=== PATIENT | male | born 1970 | race Caucasian/White ===

== ENCOUNTER 2017-03-07 11:07 | Emergency (ER) | payer SELFPAY ==
[~2017-03-07] VITALS: Ht 185.4 cm; Wt 84.1 kg
[~2017-03-07 11:07] MED LIST: CIPRO 500MG TA500 MG PO; CLEOCIN HCL300 MG PO; FLAGYL500 MG PO; FLEXERIL 1010 MG/TAB PO; LEVAQUIN 5500 MG/TA1 PO; LORTAB 5/500 501 TAB PO; NAPROSYN500 MG PO; NO HOME MEDICATIONS; NORCO 325 MG-51 TAB PO; PREDNISONE20 MG PO; ZITHROMAX 250M250 MG PO; ZOFRAN 4MG T4 MG/TAB PO
[2017-03-07 11:15] VITALS: TEMP 98
[2017-03-07 12:06] LABS: BASO # 0.1 (0.0-0.2); BASO % 0.5 % (0.0-2.0); EOS # 0.1 (0.0-0.7); EOS % 0.9 % (0-4.0); GRAN # 8.7 (1.4-6.5); GRAN % 75.2 % (42.2-75.2); HEMATOCRIT 48.2 % (42.0-52.0); HEMOGLOBIN 16.1 g/dl (13.5-18.0); LYMPH # 1.6 (1.2-3.4); MEAN CELL VOLUME 88 fl (80.0-100.0); MEAN CORPUSCULAR HEMOGLOBIN 29 pg (27.0-31.0); MEAN CORPUSCULAR HGB CONC 33 g/dl (33.0-37.0); MEAN PLATELET VOLUME 10.7 fl (7.4-10.4); MONO # 1.1 (0.1-0.6); MONO % 9.1 % (1.7-9.3); PLATELET COUNT 243 K/mm3 (130-400); RED BLOOD COUNT 5.47 M/mm3 (4.20-5.60); REDCELL DISTRIBUTION WIDTH-CV 12.3 % (11.5-14.5); WHITE BLOOD COUNT 11.6 K/mm3 (4.8-10.8)
[2017-03-07 12:07] LABS: ADJUSTED CALCIUM 9.9 mg/dL (8.4-10.2); ALANINE AMINOTRANSFERASE 27 U/L (21-72); ALKALINE PHOSPHATASE 154 U/L (50-136); ANION GAP 10 mmol/L (7-16); BILIRUBIN,TOTAL 1.2 mg/dL (0.0-1.0); BLOOD UREA NITROGEN 12 mg/dL (9-20); CALCIUM 9.9 mg/dL (8.4-10.2); CARBON DIOXIDE 32 mmol/L (22-30); CHLORIDE 92 mmol/L (98-107); CREATININE, serum 0.74 mg/dL (0.66-1.25); GLUCOSE 226 mg/dL (74-106); POTASSIUM 4.4 mmol/L (3.4-5.0); SODIUM 133 mmol/L (137-145); TOTAL PROTEIN 7.7 gm/dL (6.4-8.2)
[2017-03-07 12:18] LABS: PH 7 (5-8); SQUAMOUS EPITHELIAL None Seen /hpf; URINE APPEARANCE Clear; URINE BACTERIA None Seen /hpf; URINE BILIRUBIN Negative (NEGATIVE); URINE BLOOD 1+ (NEGATIVE); URINE COLOR Yellow; URINE GLUCOSE 3+ (NEGATIVE); URINE KETONE Negative (NEGATIVE); URINE RBC 0-2 /hpf; URINE UROBILINOGEN Negative (NEGATIVE); URINE WBC 0-2 /hpf
[2017-03-07 12:21] LABS: TROPONIN-I < 0.012 ng/mL (0.000-0.034)
[2017-03-07] MEDS ORDERED: PREDNISONE20 MG PO (12:46)
[2017-03-07] MEDS ORDERED: PROAIR HFA0.09 MG/AC IH (12:46)
[2017-03-07] MEDS ORDERED: LEVAQUIN 5500 MG/TA1 PO (12:46)
[2017-03-07 13:00] VITALS: BP 168/79; PULSE 92
== END 2017-03-07 13:01 | disposition home or self-care (01) ==
LOC: COL.ER 11:07
PROVIDERS: Nurse Practitioner
DX: J20.9 Acute bronchitis, unspecified (principal); E11.9 Type 2 diabetes mellitus without complications; I10 Essential (primary) hypertension; F17.210 Nicotine dependence, cigarettes, uncomplicated; R09.89 Other specified symptoms and signs involving the circulatory and respiratory systems
CPT/HCPCS: J7512

== ENCOUNTER 2018-04-08 23:28 | Emergency (ER) | payer SELFPAY ==
[~2018-04-08 23:28] MED LIST changes: +PROAIR HFA0.09 MG/AC IH
[2018-04-08 23:39] VITALS: BP 165/79; TEMP 97.3
[2018-04-08 23:49] LABS: HEMATOCRIT 39.7 % (42.0-52.0); HEMOGLOBIN 13.3 g/dl (13.5-18.0); MEAN CELL VOLUME 83 fl (80.0-100.0); MEAN CORPUSCULAR HEMOGLOBIN 28 pg (27.0-31.0); MEAN CORPUSCULAR HGB CONC 34 g/dl (33.0-37.0); MEAN PLATELET VOLUME 10.1 fl (7.4-10.4); PLATELET COUNT 258 K/mm3 (130-400); REDCELL DISTRIBUTION WIDTH-CV 13.7 % (11.5-14.5)
[2018-04-09] LABS: ALANINE AMINOTRANSFERASE 31 U/L (21-72); ALBUMIN 3.5 gm/dL (3.5-5.0); ALKALINE PHOSPHATASE 157 U/L (50-136); ANION GAP 11 mmol/L (7-16); AST,SGOT 25 U/L (15-37); BILIRUBIN,TOTAL 0.9 mg/dL (0.0-1.0); BLOOD UREA NITROGEN 18 mg/dL (9-20); CARBON DIOXIDE 25 mmol/L (22-30); CHLORIDE 93 mmol/L (98-107); CREATININE, serum 0.82 mg/dL (0.66-1.25); GLUCOSE 267 mg/dL (74-106); LIPASE 286 U/L (23-300); POTASSIUM 4.5 mmol/L (3.4-5.0); SODIUM 128 mmol/L (137-145); TOTAL PROTEIN 7.8 gm/dL (6.4-8.2)
[2018-04-09 00:07] LABS: BAND 7 % (0-10); BASOPHIL 1 % (0-2); LYMPHOCYTE 13 % (20.0-51.0); NEUTROPHILS 77 % (42.0-75.2); PLATELET ESTIMATE NORMAL (NORMAL)
[2018-04-09 00:09] LABS: TROPONIN-I < 0.012 ng/mL (0.000-0.034)
[2018-04-09 00:20] LABS: C-REACTIVE PROTEIN 20.1 mg/dL (0.0-0.9)
[2018-04-09] MEDS ORDERED: PREDNISONE20 MG PO (01:10)
[2018-04-09] MEDS ORDERED: NORCO 325 MG-51 TAB PO (01:10)
[2018-04-09] MEDS ORDERED: LEVAQUIN 5500 MG/TA1 PO (01:10)
[2018-04-09 01:38] VITALS: PULSE 93
== END 2018-04-09 01:35 | disposition home or self-care (01) ==
LOC: COL.ER 23:28
PROVIDERS: Emergency Medicine
DX: J18.9 Pneumonia, unspecified organism (principal); R73.9 Hyperglycemia, unspecified; F17.210 Nicotine dependence, cigarettes, uncomplicated
CPT/HCPCS: J7030; J7512; Q9967

== ENCOUNTER → 2018-07-05 | Outpatient (CLI) | payer SELFPAY ==
[2018-07-05 11:37] LABS: COLLECTION METHOD CLEAN CATCH
[2018-07-05 11:44] LABS: BASO # 0.1 (0.0-0.2); BASO % 0.6 % (0.0-2.0); EOS # 0.1 (0.0-0.7); GRAN # 5.5 (1.4-6.5); GRAN % 70.9 % (42.2-75.2); HEMATOCRIT 42.5 % (42.0-52.0); HEMOGLOBIN 14.3 g/dl (13.5-18.0); LYMPH # 1.5 (1.2-3.4); LYMPH % 19.8 % (20.0-51.0); MEAN CELL VOLUME 83 fl (80.0-100.0); MEAN CORPUSCULAR HEMOGLOBIN 28 pg (27.0-31.0); MEAN CORPUSCULAR HGB CONC 34 g/dl (33.0-37.0); MEAN PLATELET VOLUME 10.5 fl (7.4-10.4); MONO # 0.6 (0.1-0.6); MONO % 7.4 % (1.7-9.3); PLATELET COUNT 281 K/mm3 (130-400); RED BLOOD COUNT 5.11 M/mm3 (4.20-5.60); REDCELL DISTRIBUTION WIDTH-CV 13.5 % (11.5-14.5)
[2018-07-05 11:48] LABS: PH 6 (5-8); SQUAMOUS EPITHELIAL None Seen /hpf; URINE APPEARANCE Clear; URINE BACTERIA None Seen /hpf; URINE BILIRUBIN Negative (NEGATIVE); URINE BLOOD 1+ (NEGATIVE); URINE COLOR Straw; URINE GLUCOSE 3+ (NEGATIVE); URINE KETONE Negative (NEGATIVE); URINE LEUKOCYTE ESTERASE Negative (NEGATIVE); URINE NITRATE Negative (NEGATIVE); URINE PROTEIN(semi-quant) 1+ (NEGATIVE); URINE RBC 0-2 /hpf; URINE UROBILINOGEN Negative (NEGATIVE); URINE WBC 0-2 /hpf
[2018-07-05 11:49] LABS: ALBUMIN 3.9 gm/dL (3.5-5.0); BILIRUBIN,TOTAL 0.3 mg/dL (0.0-1.0); CALCIUM 9.9 mg/dL (8.4-10.2); CHOLESTEROL RISK RATIO 6.5; CREATININE, serum 0.64 mg/dL (0.66-1.25); POTASSIUM 5.4 mmol/L (3.4-5.0); TOTAL PROTEIN 7.3 gm/dL (6.4-8.2)
[2018-07-05 12:19] LABS: THYROID STIMULATING HORMONE 1.07 uIU/mL (0.465-4.680)
== END ==
LOC: ZCOL.LAB 11:33
DX: I10 Essential (primary) hypertension (principal); E11.9 Type 2 diabetes mellitus without complications

== ENCOUNTER 2018-07-17 14:03 | Emergency (ER) | payer SELFPAY ==
[~2018-07-17] VITALS: Ht 188 cm; Wt 81.8 kg
[2018-07-17 14:06] VITALS: TEMP 99.9
[2018-07-17] MEDS ORDERED: DIABETIC MEDICATION PO (14:16)
[2018-07-17] MEDS ORDERED: BLOOD PRESSURE MEDIC PO (14:16)
[2018-07-17 14:34] LABS: BASO # 0.1 (0.0-0.2); BASO % 0.3 % (0.0-2.0); EOS % 0.1 % (0-4.0); GRAN # 14.8 (1.4-6.5); GRAN % 84.1 % (42.2-75.2); HEMATOCRIT 38.9 % (42.0-52.0); HEMOGLOBIN 12.8 g/dl (13.5-18.0); LYMPH # 1.1 (1.2-3.4); LYMPH % 6.2 % (20.0-51.0); MEAN CELL VOLUME 85 fl (80.0-100.0); MEAN CORPUSCULAR HEMOGLOBIN 28 pg (27.0-31.0); MEAN CORPUSCULAR HGB CONC 33 g/dl (33.0-37.0); MEAN PLATELET VOLUME 9.4 fl (7.4-10.4); MONO # 1.6 (0.1-0.6); MONO % 8.8 % (1.7-9.3); PLATELET COUNT 224 K/mm3 (130-400); RED BLOOD COUNT 4.58 M/mm3 (4.20-5.60); REDCELL DISTRIBUTION WIDTH-CV 13.3 % (11.5-14.5)
[2018-07-17 14:46] LABS: ALBUMIN 3.7 gm/dL (3.5-5.0); BILIRUBIN,TOTAL 0.8 mg/dL (0.0-1.0); CALCIUM 8.7 mg/dL (8.4-10.2); CREATININE, serum 0.77 mg/dL (0.66-1.25); POTASSIUM 4.4 mmol/L (3.4-5.0); TOTAL PROTEIN 7.3 gm/dL (6.4-8.2)
[2018-07-17] MEDS ORDERED: DOXYCYCLINE 10100 MG PO (15:23)
[2018-07-17] MEDS ORDERED: PROAIR HFA0.09 MG/AC IH (15:23)
[2018-07-17] MEDS ORDERED: PREDNISONE20 MG PO (15:23)
[2018-07-17 15:30] VITALS: BP 120/54; PULSE 97
== END 2018-07-17 15:32 | disposition home or self-care (01) ==
LOC: COL.ER 14:03
PROVIDERS: Nurse Practitioner
DX: J18.1 Lobar pneumonia, unspecified organism (principal); E11.9 Type 2 diabetes mellitus without complications; I10 Essential (primary) hypertension; J44.9 Chronic obstructive pulmonary disease, unspecified; F17.210 Nicotine dependence, cigarettes, uncomplicated
CPT/HCPCS: J7512

== ENCOUNTER → 2018-07-20 | Outpatient (CLI) | payer SELFPAY ==
[~2018-07-20] MED LIST changes: +BLOOD PRESSURE MEDIC PO; +DIABETIC MEDICATION PO; +DOXYCYCLINE 10100 MG PO
== END ==
LOC: SUN.DIA 07-08 11:06
DX: E11.9 Type 2 diabetes mellitus without complications (principal); F17.210 Nicotine dependence, cigarettes, uncomplicated
CPT/HCPCS: G0108

== ENCOUNTER → 2019-05-22 | Outpatient (CLI) | payer SELFPAY | LOC: COL.LAB 15:50 | DX: E11.9 Type 2 diabetes mellitus without complications (principal); I10 Essential (primary) hypertension ==

== ENCOUNTER → 2019-06-13 | Outpatient (CLI) | payer SELFPAY ==
[2019-06-13 20:29] LABS: HEMATOCRIT 42.8 % (42.0-52.0); HEMOGLOBIN 13.5 g/dl (13.5-18.0)
[2019-06-13 20:44] LABS: ALBUMIN 3.8 gm/dL (3.5-5.0); BILIRUBIN,TOTAL 0.3 mg/dL (0.0-1.0); CALCIUM 9.5 mg/dL (8.4-10.2); CHOLESTEROL RISK RATIO 4.6; CREATININE, serum 0.73 (0.66-1.25); POTASSIUM 5.3 mmol/L (3.4-5.0); TOTAL PROTEIN 6.6 gm/dL (6.4-8.2)
[2019-06-13 21:14] LABS: THYROID STIMULATING HORMONE 1.29 uIU/mL (0.465-4.680)
== END ==
LOC: ZLAB.FHCC 14:18
PROVIDERS: Internal Medicine
DX: I10 Essential (primary) hypertension (principal); E11.9 Type 2 diabetes mellitus without complications

== ENCOUNTER 2021-05-21 22:12 | Emergency (ER) | payer BC ==
[~2021-05-21] VITALS: Ht 185.4 cm; Wt 93.2 kg
[2021-05-22 00:04] VITALS: BP 134/73; PULSE 87
== END 2021-05-22 00:04 | disposition home or self-care (01) ==
LOC: COL.ER 22:12
DX: S82.302A Unspecified fracture of lower end of left tibia, initial encounter for closed fracture (principal); Z98.890 Other specified postprocedural states; W17.2XXA Fall into hole, initial encounter

== ENCOUNTER 2024-10-16 08:44 | Inpatient (IN) | payer SELFPAY ==
[2024-10-16] VITALS (8 sets, daily range): BP systolic 81–178; BP diastolic 44–91; PULSE 79–106; TEMP 98–99.5
[~2024-10-16] VITALS: Ht 185.4 cm; Wt 96.7 kg
[~2024-10-16 08:44] MED LIST changes: +GLUCOTROL10 MG PO; +GLUMETZA1000 MG PO; +LEXAPRO 10MG10 MG PO; +LIPITOR 40MG TA40 MG PO; +MOBIC15 MG PO; +NORVASC 10MG10 MG PO; +PRINZIDE 12.5 M1 TA1 PO; +TOPROL XL100 MG PO
[2024-10-16] MEDS ORDERED: Albuterol/Ipratropium 3 MG-0.5 MG/3 ML Neb Soln IH SCH ×2 (09:00→20:00)
[2024-10-16] MEDS ORDERED: ASPIRIN 81M81 MG/TA2 PO (09:11)
[2024-10-16] MEDS ORDERED: JARDIANCE10 PO (09:12)
[2024-10-16] MEDS ORDERED: NEURONTIN300 MG/CAP PO (09:13)
[2024-10-16 09:34] LABS: BASO # 0.1 K/mm3 (0.0-0.2); BASO % 0.6 % (0.0-2.0); EOS # 0.1 K/mm3 (0.0-0.7); EOS % 0.9 % (0.0-4.0); GRAN # 7.8 K/mm3 (1.4-6.5); GRAN % 79.6 % (42.2-75.2); HEMATOCRIT 39.1 % (42.0-52.0); HEMOGLOBIN 12.4 g/dl (13.5-18.0); LYMPH # 0.7 K/mm3 (1.2-3.4); LYMPH % 6.9 % (20.0-51.0); MEAN CELL VOLUME 99 fl (80.0-100.0); MEAN CORPUSCULAR HEMOGLOBIN 31 pg (27-31); MEAN CORPUSCULAR HGB CONC 32 g/dl (33.0-37.0); MEAN PLATELET VOLUME 9.9 fl (7.4-10.4); MONO # 1.2 K/mm3 (0.1-0.6); MONO % 11.7 % (1.7-9.3); PLATELET COUNT 197 K/mm3 (130-400); RED BLOOD COUNT 3.96 M/mm3 (4.20-5.60); REDCELL DISTRIBUTION WIDTH-CV 13.1 % (11.5-14.5)
[2024-10-16] MEDS ORDERED: ROXICODONE 55 MG/TAB PO (09:44)
[2024-10-16] MEDS ORDERED: CRESTOR20 MG PO (09:45)
[2024-10-16] MEDS ORDERED: SENNA-S 50 MG-81 TAB PO (09:46)
[2024-10-16] MEDS ORDERED: HYTRIN 1MG C1 MG/CAP PO (09:50)
[2024-10-16] MEDS ORDERED: TYLENOL 325MG325 MG PO (09:52)
[2024-10-16 09:53] LABS: INR 0.9 (0.8-3.0); PROTHROMBIN TIME 10.1 SECONDS (9.7-12.8)
[2024-10-16 09:56] LABS: ALANINE AMINOTRANSFERASE 20 U/L (0-55); ALKALINE PHOSPHATASE 68 U/L (40-150); ANION GAP 12 mmol/L (7-16); AST,SGOT 33 U/L (5-34); BLOOD UREA NITROGEN 33 mg/dL (8-26); CALCIUM 9.6 mg/dL (8.4-10.2); CHLORIDE 99 mEq/L (98-107); CREATINE KINASE 1118 U/L (30-200); CREATININE, serum 2.25 mg/dL (0.72-1.25); GLUCOSE 170 mg/dL (70-99); LIPASE 16 U/L (8-78); POTASSIUM 5.7 mEq/L (3.5-4.5); SODIUM 131 mEq/L (136-145); TOTAL PROTEIN 6.7 g/dl (6.2-8.1)
[2024-10-16 10:01] LABS: ACETONE,SERUM NEGATIVE
[2024-10-16 10:04] LABS: TROPONIN-I 0.043 ng/mL (0.00-0.033)
[2024-10-16] MEDS ORDERED: Morphine 4 MG/ML VIAL IV ONE (10:12)
[2024-10-16 10:20] LABS: BILIRUBIN,TOTAL 0.5 mg/dL (0.2-1.2)
[2024-10-16] MEDS ORDERED: NS 1,000 ML IV ONE (10:45)
[2024-10-16] MEDS ORDERED: Iohexol 300 - 100 ML VIAL IV ONE (10:47)
[2024-10-16] MEDS ORDERED: NS 100 ML IV SCH (10:48)
[2024-10-16] MEDS ORDERED: HYDROmorphone 0.5 MG/0.5 ML SYRINGE IV ONE ×2 (11:00→13:45)
[2024-10-16] MEDS ORDERED: Albuterol 0.083% Neb Soln 2.5 MG/3 ML UD IH ONE (12:00)
[2024-10-16 12:29] LABS: COLLECTION METHOD CLEAN CATCH
[2024-10-16 12:43] LABS: PH 5.5 (5.0-8.5); URINE APPEARANCE CLEAR (CLEAR/HAZY); URINE BLOOD 1+ (NEGATIVE); URINE COLOR RED (YELLOW); URINE GLUCOSE 3+ (NEGATIVE); URINE KETONE NEGATIVE (NEGATIVE); URINE NITRATE POSITIVE (NEGATIVE); URINE PROTEIN(semi-quant) 2+ (NEGATIVE); URINE UROBILINOGEN 0.2 E.U/dL (0.2-1.0)
[2024-10-16 12:53] LABS: TRICYCLIC ANTIDEPRESS URINE NEGATIVE (NEGATIVE)
[2024-10-16] MEDS ORDERED: NS 1,000 ML IV SCH (14:30)
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
[2024-10-16] MEDS ORDERED: Mag/Al Hydrox/Simeth Susp 30 ML CUP PO PRN (15:45)
[2024-10-16] MEDS ORDERED: LORazepam 1 MG TAB PO PRN (15:45)
[2024-10-16] MEDS ORDERED: Acetaminophen 325 MG TAB PO PRN (17:00)
[2024-10-16] MEDS ORDERED: Multivitamin TAB PO SCH (17:00)
[2024-10-16] MEDS ORDERED: oxyCODONE 5 MG TAB PO PRN (17:00)
--- NOTE | 2024-10-16 17:02 | NUR ---
he is c/o pain and requesting pain meds, Dr Rivas notified of needing something for pain, also informed her he is diabetic and asked about blood sugar checks
[2024-10-16] MEDS ORDERED: amLODIPine 10 MG TAB PO SCH (17:15)
[2024-10-16] MEDS ORDERED: Ondansetron 4 MG/2 ML VIAL IV PRN (17:15)
[2024-10-16] MEDS ORDERED: Morphine 4 MG/ML VIAL IV PRN (17:15)
[2024-10-16] MEDS ORDERED: cefTRIAXone 1 G in Water For Injection,Sterile 10 ML IV SCH (17:30)
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
[2024-10-16] MEDS ORDERED: GLUCOPHAGE XR500 M1 PO (17:50)
--- NOTE | 2024-10-16 18:05 | NUR ---
awake and sitting up and eating supper, no moaning or grimacing at this time
[2024-10-16] MEDS ORDERED: Sodium Polystyrene Sulf Susp 15 GM/60 ML BOTTLE PO ONE (19:00)
--- NOTE | 2024-10-16 19:11 | NUR ---
bedside shift report given to HARI Nassar
[2024-10-16] MEDS ORDERED: Insulin Lispro (HumaLOG) SQ SCH (21:00)
[2024-10-16] MEDS ORDERED: Gabapentin 300 MG CAP PO SCH (21:00)
[2024-10-16] MEDS ORDERED: Sennosides/Docusate 8.6-50 MG TAB PO SCH (21:00)
--- NOTE | 2024-10-16 22:20 | NUR ---
PATIENT CURRENTLY LAYING IN BED, SOMEWHAT CONFUSED. IV TO RIGHT FOREARM WITH FLUIDS RUNNING. GRADY CATHETER IN PLACE AND DRAINING WELL. PATIENT C/O SEVERE PAIN. FAMILY AT BEDSIDE. CALL LIGHT WITHIN REACH. NO ACUTE EVENTS.
[2024-10-16] MEDS ORDERED: fentaNYL 50 MCG/ML 2 ML VIAL IV ONE (22:45)
[2024-10-17] VITALS (16 sets, daily range): BP systolic 94–163; BP diastolic 57–84; PULSE 67–93; TEMP 97.5–98.6
[2024-10-17 06:28] LABS: BASO % 0.3 % (0.0-2.0); EOS # 0.1 K/mm3 (0.0-0.7); EOS % 1.4 % (0.0-4.0); GRAN # 7.3 K/mm3 (1.4-6.5); GRAN % 79.1 % (42.2-75.2); HEMOGLOBIN 10.8 g/dl (13.5-18.0); LYMPH # 0.6 K/mm3 (1.2-3.4); LYMPH % 6.6 % (20.0-51.0); MEAN CELL VOLUME 98 fl (80.0-100.0); MEAN CORPUSCULAR HEMOGLOBIN 31 pg (27-31); MEAN CORPUSCULAR HGB CONC 32 g/dl (33.0-37.0); MONO # 1.1 K/mm3 (0.1-0.6); MONO % 12.3 % (1.7-9.3); PLATELET COUNT 188 K/mm3 (130-400); RED BLOOD COUNT 3.47 M/mm3 (4.20-5.60); REDCELL DISTRIBUTION WIDTH-CV 13.1 % (11.5-14.5)
[2024-10-17 06:54] LABS: CALCIUM 8.9 mg/dL (8.4-10.2); CREATININE, serum 1.41 mg/dL (0.72-1.25); POTASSIUM 4.9 mEq/L (3.5-4.5)
[2024-10-17] MEDS ORDERED: Dextrose (Glucose) 15 GM (4 x 3.75 GM) Chewable TABLET PACK PO PRN (08:15)
[2024-10-17] MEDS ORDERED: Dextrose 50% Water 25 GM/50 ML SYRINGE IV PRN (08:15)
[2024-10-17] MEDS ORDERED: Glucagon 1 MG VIAL IM PRN (08:15)
[2024-10-17] MEDS ORDERED: Escitalopram 10 MG TAB PO SCH (09:00)
[2024-10-17] MEDS ORDERED: Folic Acid 1 MG TAB PO SCH (09:00)
--- NOTE | 2024-10-17 09:19 | NUR ---
Dr. Rivas notified of critical troponin - verbal order to repeat in 3 hours
[2024-10-17] MEDS ORDERED: dexAMETHasone 10 MG/ML VIAL IV SCH (10:00)
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
[2024-10-17] MEDS ORDERED: DULERA1 ARO IH (11:17)
[2024-10-17] MEDS ORDERED: JARDIANCE25 PO (11:17)
[2024-10-17] MEDS ORDERED: PRINIVIL20 MG PO (11:17)
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
--- NOTE | 2024-10-17 15:38 | NUR ---
wire preparation worker attended multidisciplinary team meeting to discuss patient's progress and discharge plan. Recommendation from therapy is home with HH. Patient does not have insurance and can not qualify for HH services. Patient will return home with family care and follow up with PCP. Everyone is in agreement with this plan. Discharge plan: Home
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
[2024-10-17] MEDS ORDERED: Budesonide Neb Susp 0.5 MG/2 ML AMP IH SCH (19:00)
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
[2024-10-18] VITALS (19 sets, daily range): BP systolic 92–159; BP diastolic 54–96; PULSE 65–78; TEMP 97.1–98.2
--- NOTE | 2024-10-18 06:11 | NUR ---
Quiet night- CIWA score 0-2 all night, not confused this morning. IV fluids continue at 200cc/hr.
[2024-10-18 06:30] LABS: BASO % 0.1 % (0.0-2.0); GRAN # 10.3 K/mm3 (1.4-6.5); GRAN % 89.3 % (42.2-75.2); LYMPH # 0.4 K/mm3 (1.2-3.4); MEAN CELL VOLUME 96 fl (80.0-100.0); MEAN CORPUSCULAR HEMOGLOBIN 31 pg (27-31); MEAN CORPUSCULAR HGB CONC 32 g/dl (33.0-37.0); MEAN PLATELET VOLUME 10.1 fl (7.4-10.4); MONO # 0.8 K/mm3 (0.1-0.6); MONO % 7.3 % (1.7-9.3); PLATELET COUNT 197 K/mm3 (130-400); RED BLOOD COUNT 3.53 M/mm3 (4.20-5.60); REDCELL DISTRIBUTION WIDTH-CV 12.8 % (11.5-14.5)
[2024-10-18 06:56] LABS: HEMATOCRIT 33.9 % (42.0-52.0)
[2024-10-18 06:59] LABS: CALCIUM 8.8 mg/dL (8.4-10.2); CREATININE, serum 1.36 mg/dL (0.72-1.25); POTASSIUM 4.9 mEq/L (3.5-4.5)
--- NOTE | 2024-10-18 07:26 | NUR ---
Notified SHAHRAM Jules of critical lab value.
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
[2024-10-18] MEDS ORDERED: Bacitracin Topical Oint 30 GM TUBE TOP ONE (12:00)
--- NOTE | 2024-10-18 12:14 | NUR ---
SW attended clinical rounds. Patient requiring oxygen for discharge. NIGEL sent order and clinicals to [facility] due to patient being self pay with FAA completed. Patient and family updated on referral. Discharge plan: Home with family care
[2024-10-18] MEDS ORDERED: Polyethylene Glycol 3350 17 GM PDS PO ONE ×2 (13:00→15:45)
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
--- NOTE | 2024-10-18 15:35 | NUR ---
cinder pit worker attended multidisciplinary team meeting to discuss patient's progress and discharge plan. Plan is for patient to discharge home with oxygen and family care. Everyone is in agreement with this plan. Discharge plan: Home
[2024-10-18] MEDS ORDERED: Albuterol/Ipratropium 3 MG-0.5 MG/3 ML Neb Soln IH PRN (16:30)
--- NOTE | 2024-10-18 16:39 | NUR ---
Pt c/o wheezing, shortness of breath, requesting breathing treatment. No PRN breathing treatment ordered - call to SHAHRAM Jules - see orders. RT notified of order for PRN breathing treatment.
--- NOTE | 2024-10-18 20:30 | NUR ---
Patient resting in bed with family at bedside. Rates pain at 5/10 at this time, denies needs for pain meds. Needs met. Assessment complete. IV in right forearm flushes easily without complications. Call light and personal items in reach. Bed in low position and bed alarm on.
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
[2024-10-19] VITALS (17 sets, daily range): BP systolic 100–182; BP diastolic 60–80; PULSE 58–75; TEMP 97.5–98.2
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
[2024-10-19] MEDS ORDERED: Lisinopril 20 MG TAB PO SCH (11:05)
[2024-10-19] MEDS ORDERED: PREDNISONE20 MG PO (14:01)
--- NOTE | 2024-10-19 15:14 | NUR ---
SW notified that patient is no longer requiring oxygen. SW called [facility] to notify of improvement in condition. They stated they will come machine operator hop picker portable oxygen tank. RN notified.
[2024-10-19] MEDS ORDERED: OMNICEF 300MG300 MG PO ×2 (15:50→16:50)
--- NOTE | 2024-10-19 15:57 | NUR ---
community health outreach worker attended multidisciplinary team meeting to discuss patient's progress and discharge plan. Plan is for patient to return home. Everyone is in agreement with this plan. Discharge plan: Home
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
== END 2024-10-19 17:15 | disposition home or self-care (01) | DRG 557 ==
LOC: COL.ER 08:44 → MEDICAL 14:26
PROVIDERS: Emergency Medicine; ADMIT Internal Medicine
DX: M62.82 Rhabdomyolysis (principal); J96.01 Acute respiratory failure with hypoxia; N17.9 Acute kidney failure, unspecified; J21.9 Acute bronchiolitis, unspecified; E87.20 Acidosis, unspecified; N39.0 Urinary tract infection, site not specified; F10.239 Alcohol dependence with withdrawal, unspecified; E87.1 Hypo-osmolality and hyponatremia; T24.212A Burn of second degree of left thigh, initial encounter; E11.22 Type 2 diabetes mellitus with diabetic chronic kidney disease; E78.5 Hyperlipidemia, unspecified; F32.A Depression, unspecified; Z79.82 Long term (current) use of aspirin; F17.210 Nicotine dependence, cigarettes, uncomplicated; J44.9 Chronic obstructive pulmonary disease, unspecified; R33.9 Retention of urine, unspecified; E87.5 Hyperkalemia; Y90.9 Presence of alcohol in blood, level not specified; T23.202A Burn of second degree of left hand, unspecified site, initial encounter; T23.201A Burn of second degree of right hand, unspecified site, initial encounter; T22.212A Burn of second degree of left forearm, initial encounter; T21.24XA Burn of second degree of lower back, initial encounter; T31.0 Burns involving less than 10% of body surface; N18.9 Chronic kidney disease, unspecified; I12.9 Hypertensive chronic kidney disease with stage 1 through stage 4 chronic kidney disease, or unspecified chronic kidney disease
CPT/HCPCS: A9284; J0696; J1100; J1171; J1815; J2270; J3010; J7030; Q9967